=== PATIENT | male | born 1965 | race Caucasian/White ===

== ENCOUNTER → 2016-03-19 | Outpatient (REF) | payer MEDICARE ==
[~2016-03-19] MED LIST: ACET-654 PO; CIPR500T3 PO; COLA100C PO; OXYC1TAB23 PO; PERC5TAB6 PO
== END ==
LOC: M SMT 17:31
PROVIDERS: ATTEND Nurse Practitioner Family
DX: N39.0 Urinary tract infection, site not specified (principal)
CPT/HCPCS: 51798; 81001; 87086; G0463

== ENCOUNTER → 2016-03-27 | Outpatient (CLI) | payer MEDICARE ==
--- NOTE | 2016-03-27 15:44 | REP ---
Local: Recurrent urinary tract infection. Findings: Kidneys and ureters are essentially normal by noncontrast evaluation and without hydronephrosis, nephrolithiasis, perinephric stranding, or obstructing ureteral calculi. Bladder demonstrates 5.4 cm bladder stone. Subtle low density lesion in the right kidney may reflect cyst and should be correlated by ultrasound. Liver, spleen, pancreas, gallbladder, and bilateral adrenal glands are normal for noncontrast evaluation. The enteric system is without obstruction or acute inflammatory process. Colonic diverticula noted without acute diverticulitis. Pelvis demonstrates age appropriate prostate/seminal vesicles. No ascites. No free air. No obvious adenopathy. Abdominal aorta without aneurysm. Skeletal structures intact. Impression: 5.4 cm bladder stone. Subtle hypodensity in the right kidney may reflect cyst and can be evaluated by ultrasound if necessary. Signed by Alfredo Youssef MD 03/27/2016 03:35 P
== END ==
LOC: M RAD 15:03
PROVIDERS: ATTEND Nurse Practitioner Family
DX: N21.0 Calculus in bladder (principal)

== ENCOUNTER → 2016-03-28 | Outpatient (CLI) | payer MEDICARE ==
[2016-03-28 19:43] LABS: MEAN CORPUSCULAR HEMOGLOBIN 29.2 pg (27.0-33.0); MEAN CORPUSCULAR HGB CONC 33.7 g/dl (32.0-36.5); MEAN CORPUSCULAR VOLUME 86.6 fl (80.0-96.0); RED CELL DISTRIBUTION WIDTH 13.1 % (11.5-14.5); WHITE BLOOD COUNT 7.2 K/mm3 (4.0-10.0)
[2016-03-28 19:45] LABS: INR 1.04
[2016-03-28 20:05] LABS: ANION GAP 7 MEQ/L (8-16); BLOOD UREA NITROGEN 10 MG/DL (7-18); CALCIUM LEVEL 9.1 MG/DL (8.5-10.1); CARBON DIOXIDE LEVEL 27 MEQ/L (21-32); CHLORIDE LEVEL 108 MEQ/L (98-107); CREATININE FOR GFR 0.88 MG/DL (0.70-1.30); GLOMERULAR FILTRATION RATE > 60.0 (>60); GLUCOSE, FASTING 110 MG/DL (70-105); POTASSIUM SERUM 4.6 MEQ/L (3.5-5.1); SODIUM LEVEL 142 MEQ/L (136-145)
== END ==
LOC: M SMT 14:59
PROVIDERS: ATTEND Urology
DX: Z01.818 Encounter for other preprocedural examination (principal); N21.0 Calculus in bladder

== ENCOUNTER 2016-04-01 10:01 | Inpatient (IN) | payer MEDICARE ==
[~2016-04-01] VITALS: Ht 182.9 cm; Wt 74.8 kg
[~2016-04-01 10:01] MED LIST changes: -ACET-654 PO; -CIPR500T3 PO; -COLA100C PO; +LR 1,000 ML IV SCH; -OXYC1TAB23 PO; -PERC5TAB6 PO
[2016-04-01] MEDS ORDERED: BUPIVACAINE HCL 0.25% 30 ML VIAL As Ordered ONE (12:49)
[2016-04-01] MEDS ORDERED: LIDOCAINE 1% SDV INJ 30 ML VIAL As Ordered ONE (12:49)
[2016-04-01] MEDS ORDERED: BUPIVACAINE HCL 0.25% 30 ML VIAL XX ONE (13:18)
[2016-04-01] MEDS ORDERED: LIDOCAINE 1% SDV INJ 30 ML VIAL XX ONE (13:19)
[2016-04-01] MEDS ORDERED: ROCURONIUM BROMIDE 50 MG/5 ML VIAL As Ordered ONE (13:48)
[2016-04-01] MEDS ORDERED: MIDAZOLAM INJ 2 MG/2 ML VIAL (J2250) As Ordered ONE (13:48)
[2016-04-01] MEDS ORDERED: fentaNYL 250 MCG/5 ML INJECTION (J3010) As Ordered ONE (13:48)
[2016-04-01] MEDS ORDERED: PROPOFOL 200 MG/20 ML VIAL As Ordered ONE (13:48)
[2016-04-01] MEDS ORDERED: SUGAMMADEX SODIUM 500 MG/5 ML VIAL (BRIDION) As Ordered ONE (13:48)
[2016-04-01] MEDS ORDERED: LIDOCAINE 2% INJ 100 MG/5 ML SDV (FOR ANES.) As Ordered ONE (13:48)
[2016-04-01] MEDS ORDERED: ONDANSETRON 4MG/2ML VIAL (J2405) As Ordered ONE (13:49)
[2016-04-01] MEDS ORDERED: KETOROLAC 60 MG/2 ML VIAL (J1885) As Ordered ONE (13:49)
[2016-04-01] MEDS ORDERED: dexameTHASONE 4 MG/ML 1ML VIAL (J1100) As Ordered ONE (13:49)
[2016-04-01] MEDS ORDERED: PERCOCET 5MG/325MG TAB As Ordered ONE (14:55)
[2016-04-01] MEDS ORDERED: MORPHINE 2 MG/ML 1ML SYRINGE As Ordered ONE (14:55)
[2016-04-01] MEDS ORDERED: PERCOCET 5MG/325MG TAB PO PRN (15:00)
[2016-04-01] MEDS: PERCOCET 5MG/325MG TAB PO PRN ×2 (15:00→15:24)
[2016-04-01] MEDS ORDERED: ACETAMINOPHEN TAB 650MG DOSE (2X325MG) PO PRN (15:00)
[2016-04-01] MEDS ORDERED: ONDANSETRON 4MG/2ML VIAL (J2405) IV PRN ×2 (15:00→15:15)
[2016-04-01] MEDS ORDERED: MORPHINE 2 MG/ML 1ML SYRINGE IV PRN ×2 (15:00→15:15)
[2016-04-01] MEDS ORDERED: LR 1,000 ML IV SCH (15:15)
[2016-04-01] MEDS ORDERED: fentaNYL 100 MCG/2 ML INJECTION (J3010) IV PRN (15:15)
[2016-04-01] MEDS: NS 1,000 ML IV SCH ×2 (15:16→21:51)
[2016-04-01 16:45] VITALS: BP 120/70
[2016-04-01 17:15] VITALS: BP_SYST 111; BP_SYST 113; BP_DIAS 65
[2016-04-01 17:45] VITALS: BP 111/65
[2016-04-01 18:45] VITALS: BP 134/89
[2016-04-01 19:45] VITALS: BP 109/63
[2016-04-01] MEDS: DOCUSATE SODIUM 100 MG CAP PO SCH (20:24)
[2016-04-01] MEDS: ceFAZolin SOD 1 GM in D5W MINI-BAG PLUS 50 ML IV SCH (20:24)
[2016-04-01 20:45] VITALS: BP 123/69
--- NOTE | 2016-04-01 23:24 | RO ---
DATE OF PROCEDURE: 04/01/2016 PREOPERATIVE DIAGNOSIS: Bladder stone. POSTOPERATIVE DIAGNOSIS: Bladder stone. OPERATIVE PROCEDURE: Cystotomy with open removal of bladder stone. SURGEON: Faizan Lam MD DIRECTOR PRIVATE: None. ANESTHESIA: General. OPERATIVE INDICATIONS: This is a 50-year-old male having symptoms of recurrent urinary tract infections for years. He presented to our office for evaluation and cystoscopy was performed last week and notable for a very large bladder stone. It was recommended that he be brought to the operating room today for the above listed procedure. DESCRIPTION OF OPERATION: The patient was brought to the operating room and general anesthesia was induced. Prophylactic antibiotics were infused. He was then placed in the supine position and prepped and draped in the usual sterile fashion. At this point, a catheter was placed into the bladder and the balloon was filled with 10 mL of sterile water. The patient's bladder was then completely drained. The catheter was kept on gravity drainage. At this point, an approximately 5 cm midline suprapubic incision was made. Then, I carried down through the subcutaneous tissues to the fascia. The fascia was then opened with electrocautery and the bellies of the rectus muscle were bluntly divided. At this point, the patient's bladder was then filled with approximately 140 mL of sterile saline. We then kept dissecting down into the prevesical space and onto the bladder. At this point, it appeared that we were on top of the bladder and the detrusor muscle was opened. We then used a spinal needle to aspirate from the structure and then withdrew the irrigation and confirmed that we were indeed looking at the bladder. At this point, an approximately 3 to 4 cm cystotomy was made at the dome of the bladder. The mucosa was opened as well and within the bladder, the large stone was seen. The stone was then removed. The stone was very hard and it was about 6 cm in size. At this point, the inside of the bladder was examined and it was unremarkable. The bladder was then closed in two layers, first with a running #3-0 Vicryl suture to close the mucosa. The detrusor muscle was then closed using a #2-0 Vicryl suture in running fashion. At this point, the bladder was then filled with approximately 240 mL of saline and there did not appear to be any leakage, confirming that the closure was water tight. At this point, the bladder was allowed to drain and a DAGO drain was then placed adjacent to the bladder through a separate stab incision. This drain was secured to the skin using a #2-0 Ethilon suture. At this point, the fascia was then closed using a running #0 Vicryl suture. At this point, the wound was then thoroughly irrigated. The skin was then closed using a running subcuticular #4-0 Monocryl suture. The drain was then connected to bulb suction and local anesthesia was applied to the incision. The wound was then cleaned and then Dermabond was applied and dressings were applied to the drain marking the conclusion of the procedure. The patient then awakened from anesthesia and transported to the recovery room in stable condition. ESTIMATED BLOOD LOSS: 5 mL. COMPLICATIONS: None. SPECIMENS: Bladder stone. PLAN: The patient will be admitted to the hospital overnight. He will most likely be discharged to home tomorrow if his pain is well controlled and his labs look okay. I will most likely remove his DAGO drain in the morning and plan to leave his catheter in place for approximately two weeks for his bladder to heal. SHAZIA
[2016-04-02 02:00] VITALS: BP 143/86
[2016-04-02 04:00] VITALS: BP 145/85
[2016-04-02] MEDS: NS 1,000 ML IV SCH (04:20)
[2016-04-02] MEDS: ceFAZolin SOD 1 GM in D5W MINI-BAG PLUS 50 ML IV SCH (04:20)
[2016-04-02 06:00] VITALS: BP 152/84
[2016-04-02] MEDS: PERCOCET 5MG/325MG TAB PO PRN ×2 (06:05→10:45)
[2016-04-02 06:49] LABS: MEAN CORPUSCULAR HEMOGLOBIN 29.2 pg (27.0-33.0); MEAN CORPUSCULAR HGB CONC 33.8 g/dl (32.0-36.5); MEAN CORPUSCULAR VOLUME 86.6 fl (80.0-96.0); RED CELL DISTRIBUTION WIDTH 13.2 % (11.5-14.5); WHITE BLOOD COUNT 14.3 K/mm3 (4.0-10.0)
[2016-04-02 06:55] LABS: ANION GAP 8 MEQ/L (8-16); BLOOD UREA NITROGEN 10 MG/DL (7-18); CALCIUM LEVEL 7.7 MG/DL (8.5-10.1); CARBON DIOXIDE LEVEL 26 MEQ/L (21-32); CHLORIDE LEVEL 106 MEQ/L (98-107); CREATININE FOR GFR 0.81 MG/DL (0.70-1.30); GLOMERULAR FILTRATION RATE > 60.0 (>60); GLUCOSE, FASTING 91 MG/DL (70-105); POTASSIUM SERUM 4.1 MEQ/L (3.5-5.1); SODIUM LEVEL 140 MEQ/L (136-145)
[2016-04-02] MEDS: DOCUSATE SODIUM 100 MG CAP PO SCH (08:18)
[2016-04-02] MEDS ORDERED: CIPR500T3 PO (08:27)
[2016-04-02] MEDS ORDERED: PERC5TAB6 PO (08:27)
[2016-04-02] MEDS ORDERED: ACET-654 PO (08:27)
[2016-04-02] MEDS ORDERED: OXYC1TAB23 PO (08:27)
[2016-04-02] MEDS ORDERED: COLA100C PO (08:27)
[2016-04-02 10:00] VITALS: BP 125/72
--- NOTE | 2016-04-02 10:18 | IPNPDOC ---
Assessment/Plan Date Seen The patient was seen on 04/02/16. Patient Summary This is a 50 y/o M POD1 s/p cystotomy w/ open removal of bladder stone. He is doing well. His pain is well controlled. His urine is clear today and there has been minimal DAGO drain output. Plan/VTE VTE Prophylaxis Ordered?: Yes VTE Exclusion Mechanical Proph: N/A:VTE Prophy Ordered Plan/Urinary Catheter Urinary Catheter: Other Catheter: (continue travis to allow the bladder to heal) Plan - d/c DAGO drain - percocet PRN pain - d/c IVF - ambulate - plan discharge home today w/ catheter in place for 2 weeks for bladder healing - will get a cystogram prior to catheter removal Subjective Review oF Systems Chief Complaint Bladder Stone Events since Last Encounter No acute events o/n. Pain well-controlled. No n/v. Has not ambulated yet. No f/c/ns. Objective Physical Examination General Exam: : Alert: Cooperative: No Acute Distress ABDOMEN EXAM: : Other (incisions clean/dry/intact; DAGO drain w/ serosanguinous output): Soft: Tenderness (appropriately tender) Skin Exam: : Nl turgor and temperature Psych Exam: : Mental status NL: Mood NL Other physical findings catheter in place, draining clear urine Vital Signs/I&O Vital Signs Date Time Temp Pulse Resp B/P Pulse Ox O2 Delivery O2 Flow Rate FiO2 04/02/16 07:30 18 04/02/16 06:05 Room Air 04/02/16 06:00 97.4 64 152/84 96 I&O- Last 24 Hours up to 6 AM 04/02/16 06:00 Intake Total 4050 ml Output Total 390 ml Balance 3660 ml Laboratory Data Labs 24H Laboratory Tests 2 04/01/16 14:00: 04/02/16 05:56: Anion Gap 8, Blood Urea Nitrogen 10, Creatinine 0.81, Sodium Level 140, Potassium Level 4.1, Chloride Level 106, Carbon Dioxide Level 26, Calcium Level 7.7L, Glomerular Filtration Rate > 60.0 CBC/BMP Laboratory Tests 04/02/16 05:56 Calcium Level 7.7 L, Red Blood Count 4.52, Mean Corpuscular Volume 86.6, Mean Corpuscular Hemoglobin 29.2, Mean Corpuscular Hemoglobin Concent 33.8, Red Cell Distribution Width 13.2 LITA AMBRIZ MD Apr 02, 2016 10:18
--- NOTE | 2016-04-02 13:02 | DSES ---
DATE OF ADMISSION: 04/01/2016 DATE OF DISCHARGE: 04/02/2016 ADMISSION DIAGNOSIS: Bladder stone. DISCHARGE DIAGNOSIS: Bladder stone. ADMITTING PHYSICIAN: Faizan Lam MD DISCHARGE PHYSICIAN: Faizan Lam MD PROCEDURE PERFORMED: Cystotomy with open removal of bladder stone on 2016. HISTORY OF PRESENT ILLNESS: This is a 50-year-old male who was admitted to the hospital after undergoing the above-listed procedure. HOSPITALIZATION COURSE: The patient was admitted to the hospital after undergoing the above-listed procedure. His postoperative course was unremarkable. On postoperative day #1, his pain was well controlled with oral pain medication. His Mauri-Diaz (DAGO) drain had very minimal output and, therefore, his DAGO drain was removed on postoperative day #1. His Mcrae catheter was draining well without any problems, and the urine was clear. All his laboratories were within normal limits. He was ambulating well and was tolerating a regular diet. He was, therefore, deemed ready for discharge home on postoperative day #1. He was discharged home with his catheter in place with the plan to keep it in place for approximately 2 weeks to allow time for his bladder to heal. He will followup in the clinic in about 2 weeks with a cystogram prior; and if that cystogram shows no leak, will remove his catheter at that time. SHAZIA
== END 2016-04-02 12:04 | disposition home or self-care (01) | DRG 664 ==
LOC: M SDC 10:01 → EDSTATUS 11:40 → M MSPAV 16:25
PROVIDERS: ADMIT Urology; ATTEND Urology
PROC: 0TCB0ZZ Extirpation of Matter from Bladder, Open Approach (ICD-10-PCS; principal; 2016-04-01 11:40)
DX: N21.0 Calculus in bladder (principal)

== ENCOUNTER → 2016-04-23 | Outpatient (CLI) | payer MEDICARE ==
[~2016-04-23] MED LIST changes: +ACET-654 PO; +CIPR500T3 PO; +COLA100C PO; +CYSTO-CONRAY II 17.2% 250ML VIAL (Q9958) As Ordered ONE; -LR 1,000 ML IV SCH; +OXYC1TAB23 PO; +PERC5TAB6 PO
--- NOTE | 2016-04-23 18:01 | REP ---
CYSTOGRAM: The procedure was performed under the direct supervision of Dr. Curry. The images were reviewed with Dr. Curry. The patient arrives in the department with an existing indwelling Mcrae catheter. 250 mL of Ofisw-Iuvdsv-0 was instilled into the bladder in a retrograde flow. The bladder is normal in position and contour. There is no intrinsic or extrinsic mass effect on the bladder. There is no evidence of extravasation. There is bilateral ureteral reflux with dilated ureter and pelves. This is consistent with grade 3 vesicoureteral reflux. There is mild postvoid residual. IMPRESSION: 1. The bladder is normal in position and contour. There is no evidence of extravasation. 2. There is bilateral grade 3 vesicoureteral reflux. 21 seconds of fluoroscopy time was utilized for this procedure. Reviewed by JOY Lechuga 04/24/2016 04:06 PEdited and Signed by Murtaza Curry MD 04/24/2016 04:33 P
== END ==
LOC: M RADPRO 11:08
PROVIDERS: ATTEND Urology
DX: N13.70 Vesicoureteral-reflux, unspecified (principal); N21.0 Calculus in bladder
CPT/HCPCS: 51610; 74430; Q9958